=== PATIENT | female | born 1955 | race Caucasian/White ===

== ENCOUNTER 2016-11-24 18:25 | Emergency (ER) | payer OTHER ==
[~2016-11-24] VITALS: Ht 165.1 cm; Wt 97.5 kg
[2016-11-24] MEDS ORDERED: LOSARTAN-HCTZ1 EACH (18:38)
[2016-11-24] MEDS ORDERED: TOPROL XL25 MG (18:38)
[2016-11-24] MEDS ORDERED: CELEBREX50 MG (18:39)
[2016-11-25] MEDS ORDERED: AMLODIPINE BESYL5 MG PO (01:04)
== END 2016-11-24 21:20 | disposition home or self-care (01) ==
LOC: ED 18:25
DX: R41.82 Altered mental status, unspecified (principal); I10 Essential (primary) hypertension; Z88.2 Allergy status to sulfonamides; Z79.899 Other long term (current) drug therapy; Z96.653 Presence of artificial knee joint, bilateral; Z98.890 Other specified postprocedural states
CPT/HCPCS: 80053; 81001; 82010; 85025; 96360; 99283; G0480; J7030; J7042

== ENCOUNTER 2016-11-25 00:57 | Emergency (ER) | payer OTHER ==
[~2016-11-25] VITALS: Ht 165.1 cm; Wt 97.5 kg
[~2016-11-25 00:57] MED LIST: CELEBREX50 MG; LOSARTAN-HCTZ1 EACH; TOPROL XL25 MG
[2016-11-25] MEDS ORDERED: AMLODIPINE BESYL5 MG PO (01:04)
== END 2016-11-25 05:08 | disposition home or self-care (01) ==
LOC: ED 00:57
DX: F41.9 Anxiety disorder, unspecified (principal); I10 Essential (primary) hypertension; Z88.2 Allergy status to sulfonamides; Z79.899 Other long term (current) drug therapy
CPT/HCPCS: 96361; 96374; 99283; J2060; J7042